=== PATIENT | female | born 2000 | race Caucasian/White ===

== ENCOUNTER 2018-12-27 13:40 | Emergency (ER) | payer MEDICAID ==
[~2018-12-27] VITALS: Ht 154.9 cm; Wt 65.0 kg
[2018-12-27 13:47] VITALS: BP 123/81
[2018-12-27 14:16] LABS: URINE HCG POSITIVE (NEG)
[2018-12-27 14:17] LABS: CLARITY,URINE SLIGHTLY CLOUDY (Clear); COLOR,URINE STRAW (Yellow); GLUCOSE, URINE NEGATIVE (Neg); KETONES,URINE 15 mg/dl (Neg); LEUKOCYTE ESTERASE ,URINE NEGATIVE (Neg); NITRITES, URINE NEGATIVE (Neg); OCCULT BLOOD,URINE NEGATIVE (Neg); PH,URINE 6.5 (4.8-8.0); PROTEIN,URINE NEGATIVE (Neg); UA COLLECTION TYPE CLN CATCH MIDSTREAM; UROBILINOGEN,URINE 0.2 E.U/dL (0.2-1.0)
[2018-12-27 14:22] LABS: MUCUS STRANDS NONE SEEN /LPF (Neg); SQUAMOUS EPITHELIAL CELL,UR MANY /LPF (FEW); TRANSITIONAL EPI CELLS,URINE FEW /HPF
[2018-12-27 14:23] LABS: BACTERIA,URINE FEW /HPF (Neg); RBC,URINE 0-2 /HPF (0-2); WBC,URINE 0-4 /HPF (0-4)
[2018-12-27] MEDS ORDERED: PNV1TABL55 PO (14:34)
== END 2018-12-27 14:45 | disposition home or self-care (01) ==
LOC: ER 13:41
DX: O23.41 Unspecified infection of urinary tract in pregnancy, first trimester (principal); R30.0 Dysuria; Z3A.01 Less than 8 weeks gestation of pregnancy; Z79.899 Other long term (current) drug therapy
CPT/HCPCS: 81001; 81025; 99283